=== PATIENT | male | born 1940 | race Caucasian/White ===

== ENCOUNTER → 2020-08-07 | Outpatient (CLI) | payer MEDICARE, BC ==
[~2020-08-07] MED LIST: REGADENOSON 0.4 MG/5 ML SYRINGE ONE
== END | disposition home or self-care (01) ==
LOC: CFH 08:30
PROVIDERS: ATTEND Internal Medicine Cardiovascular Disease
DX: I21.09 ST elevation (STEMI) myocardial infarction involving other coronary artery of anterior wall (principal); I42.9 Cardiomyopathy, unspecified; I50.9 Heart failure, unspecified; I21.19 ST elevation (STEMI) myocardial infarction involving other coronary artery of inferior wall; I25.5 Ischemic cardiomyopathy; R94.31 Abnormal electrocardiogram [ECG] [EKG]
CPT/HCPCS: 78452; 93017; A9502; J2785

== ENCOUNTER → 2020-08-10 | Outpatient (CLI) | payer MEDICARE, BC | END | disposition home or self-care (01) | LOC: CFH 12:13 | PROVIDERS: ATTEND Internal Medicine Cardiovascular Disease | DX: I08.3 Combined rheumatic disorders of mitral, aortic and tricuspid valves (principal); I42.9 Cardiomyopathy, unspecified; I50.9 Heart failure, unspecified | CPT/HCPCS: 93306 ==

== ENCOUNTER 2020-11-23 08:43 | Observation (INO) | payer MEDICARE, BC ==
[~2020-11-23] VITALS: Ht 175.3 cm; Wt 72.5 kg
[~2020-11-23 08:43] MED LIST changes: +ALLO100T30 PO; +ASCO100018 PO; +ASPI81TA45 PO; +CARV3.1212 PO; +CHOL10003 PO; +DEXA4TAB66 PO; +FINA5TAB4 PO; +FURO-93 PO; +IXAZ3CAP3 PO; +LENA5CAP PO; +LOPE2CAP PO; +POTA20PA25 PO; -REGADENOSON 0.4 MG/5 ML SYRINGE ONE; +TURM500C7 PO; +VITA1CAP PO
[2020-11-23 09:08] VITALS: BP 107/72
[2020-11-23] MEDS ORDERED: MIDAZOLAM 1 MG/ML, 2ML ONE (09:14)
[2020-11-23] MEDS ORDERED: CEFAZOLIN PMX 1GM/50ML 0 ML ONE (09:14)
[2020-11-23] MEDS ORDERED: LIDOCAINE 1%, 20ML ONE ×2 (09:14→11:04)
[2020-11-23] MEDS ORDERED: FENTANYL PF 100 MCG/2ML ONE ×3 (09:14→11:09)
[2020-11-23] MEDS ORDERED: CEFAZOLIN 1,000 MG ONE ×2 (09:15→10:18)
[2020-11-23] MEDS ORDERED: MIDO2.5T PO (09:15)
[2020-11-23] MEDS ORDERED: [UNRECOGNIZED DRUG - CODE] PO (09:28)
[2020-11-23] MEDS ORDERED: POTA20TA89 PO (09:28)
[2020-11-23] MEDS ORDERED: LENA5CAP PO (09:28)
[2020-11-23] MEDS ORDERED: CYAN-27 PO (09:31)
[2020-11-23] MEDS ORDERED: SODI650T PO (09:44)
[2020-11-23 09:59] LABS: BASOPHILS % (AUTO) 2 % (0-1); EOSINOPHILS % (AUTO) 1 % (1-7); LYMPHOCYTES % (AUTO) 21 % (22-44); MEAN CORPUSCULAR HEMOGLOBIN 31.1 pg (27.5-34.5); MEAN CORPUSCULAR HGB CONC 33.1 g/dL (33.2-36.2); MEAN PLATELET VOLUME 10.8 fL (7.4-10.4); MONOCYTES % (AUTO) 20 % (2-9); NEUTROPHILS % (AUTO) 57 % (42-75); PLATELET COUNT 52 x10^3/uL (130-400); RED BLOOD COUNT 3.27 x10^6/uL (4.38-5.82); RED CELL DISTRIBUTION WIDTH 18.2 % (9.4-14.8)
[2020-11-23 10:00] LABS: ANION GAP 7 mmol/L (5-15); CALCIUM 9.2 mg/dL (8.5-10.1); CHLORIDE 106 mmol/L (98-107); CREATININE 1.91 mg/dL (0.7-1.3)
[2020-11-23] MEDS ORDERED: MIDAZOLAM 1 MG/ML, 5ML ONE (10:18)
[2020-11-23] MEDS ORDERED: CEFAZOLIN PMX 1GM/50ML 50 ML ONE (10:18)
[2020-11-23] MEDS ORDERED: LIDOCAINE 2%, 20ML ONE (10:18)
[2020-11-23 10:20] LABS: ACANTHOCYTES 1+; ANISOCYTOSIS 1+; ECHINOCYTES 1+; MD MORPH REVIEW ONLY; OVALOCYTES 1+
[2020-11-23 10:21] LABS: <PLATELET ESTIMATE> DECREASED; LARGE PLATELETS 1+
[2020-11-23] MEDS ORDERED: ONDANSETRON 2MG/ML, 2ML IV PRN (11:30)
[2020-11-23] MEDS ORDERED: LOPERAMIDE 2 MG CAPSULE PO PRN (11:30)
[2020-11-23] MEDS ORDERED: FUROSEMIDE 20 MG TABLET PO PRN (11:30)
[2020-11-23] MEDS ORDERED: HOLD MEDICATION MC PRN (11:30)
[2020-11-23] MEDS ORDERED: DEXAMETHASONE 4 MG TABLET PO SCH (11:30)
[2020-11-23] MEDS ORDERED: MIDODRINE 2.5 MG TABLET PO PRN (11:30)
[2020-11-23] MEDS ORDERED: BISACODYL 5 MG EC TABLET PO PRN (11:30)
[2020-11-23 13:00] VITALS: BP 138/76
[2020-11-23] MEDS ORDERED: CYANOCOBALAMIN 1,000 MCG TABLET PO SCH (15:30)
[2020-11-23 16:00] VITALS: BP 89/56
[2020-11-23] MEDS: SODIUM CHLORIDE 0.9% 1,000 ML IV SCH ×2 (17:30→18:18)
[2020-11-23] MEDS: CEFAZOLIN PMX 1GM/50ML 50 ML IVPB SCH (18:45)
[2020-11-23 20:13] VITALS: BP 94/62
[2020-11-23] MEDS: SODIUM CHLORIDE FLUSH 10ML SYR IVF SCH (20:41)
[2020-11-23] MEDS: ACETAMINOPHEN 325 MG TABLET PO PRN (20:41)
[2020-11-23] MEDS ORDERED: ZOLPIDEM 5MG TABLET PO PRN (21:00)
[2020-11-24] MEDS: CEFAZOLIN PMX 1GM/50ML 50 ML IVPB SCH ×2 (01:54→08:47)
[2020-11-24 02:00] VITALS: BP 103/64
[2020-11-24] MEDS: SODIUM CHLORIDE 0.9% 1,000 ML IV SCH ×2 (02:58→09:30)
[2020-11-24] MEDS: ACETAMINOPHEN 325 MG TABLET PO PRN (03:53)
[2020-11-24 07:14] VITALS: BP 108/69
[2020-11-24] MEDS ORDERED: ACET325T26 PO (08:30)
[2020-11-24] MEDS: SODIUM CHLORIDE FLUSH 10ML SYR IVF SCH (08:43)
[2020-11-24] MEDS ORDERED: ASPIRIN 81 MG TABLET EC PO SCH (09:00)
[2020-11-24] MEDS ORDERED: ALLOPURINOL 300 MG TABLET PO SCH (09:00)
[2020-11-24] MEDS ORDERED: SODIUM BICARBONATE 650 MG TABLET PO SCH (09:00)
[2020-11-24] MEDS ORDERED: FINASTERIDE 5 MG TABLET PO SCH (09:00)
== END 2020-11-24 10:00 | disposition home or self-care (01) ==
LOC: CACL 08:43 → ORIP 11:29 → 5SO 15:02 → DCLOUNGE 11-24 09:50
PROVIDERS: ADMIT Internal Medicine Cardiovascular Disease; ATTEND Internal Medicine Cardiovascular Disease
DX: I25.5 Ischemic cardiomyopathy (principal); Z45.02 Encounter for adjustment and management of automatic implantable cardiac defibrillator; I13.0 Hypertensive heart and chronic kidney disease with heart failure and stage 1 through stage 4 chronic kidney disease, or unspecified chronic kidney disease; I50.9 Heart failure, unspecified; N18.9 Chronic kidney disease, unspecified; R53.83 Other fatigue; C90.00 Multiple myeloma not having achieved remission; G47.30 Sleep apnea, unspecified; I95.1 Orthostatic hypotension; Z79.899 Other long term (current) drug therapy; Z95.810 Presence of automatic (implantable) cardiac defibrillator
CPT/HCPCS: 33249; 36415; 71045; 71046; 80048; 85025; 93005; 96361; 96365; 96366; 99156; C1721; C1779; C1892; C1895; G0378; J0690; J2250; J3010; J3490; J7030

== ENCOUNTER 2020-12-20 13:23 | Inpatient (IN) | payer MEDICARE, BC ==
[~2020-12-20] VITALS: Ht 175.3 cm; Wt 67.6 kg
[~2020-12-20 13:23] MED LIST changes: +ACET325T26 PO; +CYAN-27 PO; +MIDO2.5T PO; +POTA20TA89 PO; +SODI650T PO; +[UNRECOGNIZED DRUG - CODE] PO
[2020-12-20] MEDS ORDERED: SODIUM CHLORIDE FLUSH 10ML SYR IVF ONE (14:00)
--- NOTE | 2020-12-20 14:06 | NUR ---
FIRST CONTACT WITH PT. PT C/O FATIGUE AND SOB. HX:CHF (NO HOME O2), PACEMAKER (X3 WEEKS). PT DENIES ANY OTHER SYMPTOMS. PT'S AOX4. RESPS EVEN AND UNLABORED. ALL MONITORS IN PLACE. SPO2 >90% WITH 2L OXY BY NC.
--- NOTE | 2020-12-20 14:14 | NUR ---
TASK RN: PIV STARTED, LABS DRAWN.
[2020-12-20 14:31] LABS: BASOPHILS % (AUTO) 1 % (0-1); EOSINOPHILS % (AUTO) 0 % (1-7); LYMPHOCYTES % (AUTO) 5 % (22-44); MEAN CORPUSCULAR HEMOGLOBIN 31.7 pg (27.5-34.5); MEAN CORPUSCULAR HGB CONC 32.6 g/dL (33.2-36.2); MEAN PLATELET VOLUME 11.7 fL (7.4-10.4); MONOCYTES % (AUTO) 18 % (2-9); NEUTROPHILS % (AUTO) 76 % (42-75); PLATELET COUNT 50 x10^3/uL (130-400); RED CELL DISTRIBUTION WIDTH 20.8 % (9.4-14.8)
[2020-12-20 14:39] LABS: ALBUMIN 3.4 g/dL (3.4-5.0); ANION GAP 7 mmol/L (5-15); CALCIUM 10.2 mg/dL (8.5-10.1); CHLORIDE 106 mmol/L (98-107)
[2020-12-20 14:45] LABS: ALKALINE PHOSPHATASE 641 U/L (45-117); BILIRUBIN,TOTAL 3.6 mg/dL (0.2-1.0); CREATININE 2.37 mg/dL (0.7-1.3); TOTAL PROTEIN 6.3 g/dL (6.4-8.2)
[2020-12-20 14:47] LABS: ALANINE AMINOTRANSFERASE 258 U/L (12-78)
--- NOTE | 2020-12-20 14:55 | NUR ---
TASK RN: PT REPOSITIONED IN BED, PROVIDED URINAL AND EDUCATED ON NEED FOR SAMPLE.
[2020-12-20 14:56] LABS: TROPONIN I 0.139 ng/mL (0.000-0.045)
[2020-12-20] MEDS ORDERED: ASPIRIN 81 MG TABLET CHEW ONE (15:00)
[2020-12-20] MEDS ORDERED: ASPIRIN 81 MG TABLET CHEW PO ONE (15:00)
[2020-12-20] MEDS ORDERED: SODIUM CHLORIDE 0.9% 1,000ML IVBOLUS ONE (15:00)
--- NOTE | 2020-12-20 15:07 | NUR ---
TASK RN: PT REPORTS TAKING 162 MG ASPIRIN TODAY. PER HOLD ASPIRIN. INQUIRED ABOUT ABX AT THIS TIME. PER PT IS ALSO TO REMAIN NPO.
[2020-12-20 15:08] LABS: MD NO
--- NOTE | 2020-12-20 15:11 | NUR ---
TASK RN: PT PROVIDED W/ MOUTH SWAB.
[2020-12-20] MEDS ORDERED: CEFTRIAXONE PMX 1GM/50ML 50 ML IV ONE (15:30)
--- NOTE | 2020-12-20 15:34 | NUR ---
PT RESTING IN [place]. PT'S AOX4. RESPS EVEN AND UNLABORED. NSR RATE 80-90'S ON CARDIAC [place] WITHOUT ECTOPY. ALL MONITORS IN PLACE. CALL LIGHT WITHIN REACH.
[2020-12-20] MEDS ORDERED: CEFTRIAXONE PMX 1GM/50ML 50 ML ONE (15:42)
--- NOTE | 2020-12-20 15:54 | NUR ---
ABX INFUSING AT THIS TIME AFTER BC X 2. PT TOLERATED WELL.
--- NOTE | 2020-12-20 16:33 | NUR ---
EDMD AT BEDSIDE TO EXPLAIN ALL RESULTS AT THIS TIME.
--- NOTE | 2020-12-20 17:09 | NUR ---
PT C/O PRESSURE SORE ON BACK D/T SORAYA. THIS RN DISCUSSED WITH THROUGHPUT. PER THROUGHPUT, PT WILL HAVE BED SOON.
[2020-12-20] MEDS ORDERED: hydrALAzine 20 MG/ML, 1ML IVPush PRN (17:30)
[2020-12-20] MEDS ORDERED: ENALAPRILAT 1.25 MG/ML, 2ML IVPush PRN (17:30)
[2020-12-20] MEDS ORDERED: ONDANSETRON 2MG/ML, 2ML IVPush PRN (17:30)
[2020-12-20] MEDS ORDERED: GUAIFENESIN/DM 200-20MG, 10ML UDC PO PRN (17:30)
[2020-12-20] MEDS ORDERED: ONDANSETRON ODT 4 MG PO PRN (17:30)
[2020-12-20] MEDS ORDERED: morphine SULFATE 10 MG/ML, 1ML IVPush PRN (17:30)
[2020-12-20] MEDS ORDERED: ACETAMINOPHEN 325 MG TABLET PO PRN (17:30)
--- NOTE | 2020-12-20 17:33 | NUR ---
REPORT GIVEN TO WAN SNYDER. ALL QUESTIONS ANSWERED.
[2020-12-20 17:43] LABS: TROPONIN I 0.145 ng/mL (0.000-0.045)
[2020-12-20 18:05] VITALS: BP 118/89
[2020-12-20] MEDS: FUROSEMIDE 40 MG/4 ML IV SCH (18:20)
[2020-12-20] MEDS: HEPARIN 5,000 UNITS/ML, 1ML SQ SCH (18:24)
[2020-12-20 19:37] LABS: MICROSCOPIC NOT IND
[2020-12-20 19:45] VITALS: BP 122/86
[2020-12-20] MEDS ORDERED: MELATONIN 5 MG TABLET PO PRN (21:00)
[2020-12-21 00:20] LABS: TROPONIN I 0.135 ng/mL (0.000-0.045)
[2020-12-21 01:32] VITALS: BP 119/88
[2020-12-21] MEDS: HEPARIN 5,000 UNITS/ML, 1ML SQ SCH ×3 (03:20→22:03)
[2020-12-21 06:51] VITALS: BP 139/93
[2020-12-21 07:09] LABS: MEAN CORPUSCULAR HEMOGLOBIN 31.8 pg (27.5-34.5); MEAN PLATELET VOLUME 12.2 fL (7.4-10.4); RED BLOOD COUNT 3.17 x10^6/uL (4.38-5.82); RED CELL DISTRIBUTION WIDTH 20.9 % (9.4-14.8)
[2020-12-21 07:12] LABS: ALBUMIN 3.2 g/dL (3.4-5.0); ANION GAP 9 mmol/L (5-15); CALCIUM 9.9 mg/dL (8.5-10.1); CHLORIDE 105 mmol/L (98-107)
[2020-12-21 07:17] LABS: ALANINE AMINOTRANSFERASE 241 U/L (12-78); ALKALINE PHOSPHATASE 611 U/L (45-117); BILIRUBIN,TOTAL 2.9 mg/dL (0.2-1.0); CREATININE 2.19 mg/dL (0.7-1.3)
[2020-12-21 07:35] LABS: MD YES
[2020-12-21 07:37] LABS: PLATELET COUNT 49 x10^3/uL (130-400)
[2020-12-21 07:38] LABS: BAND#(MANUAL) 0.24 x10^3/uL; BANDS%(MANUAL) 4 % (0-7); LYMPH#(MANUAL) 0.18 x10^3/uL (1-3.4); LYMPHS% (MANUAL) 3 % (22-44); METAMYELOCYTES# (MANUAL) 0.06 x10^3/uL (0-0); METAMYELOCYTES% (MANUAL) 1 % (0-1); MONOS#(MANUAL) 0.53 x10^3/uL (0.3-2.7); MONOS% (MANUAL) 9 % (2-9); SEGS% (MANUAL) 83 % (42-75)
[2020-12-21 07:39] LABS: <PLATELET ESTIMATE> DECREASED; ACANTHOCYTES 1+; ANISOCYTOSIS 1+; LARGE PLATELETS 1+; OVALOCYTES 1+
[2020-12-21 07:40] LABS: ECHINOCYTES 2+; HYPOCHROMIA 1+; POLYCHROMASIA 1+; TARGET CELLS 1+
[2020-12-21] MEDS: FUROSEMIDE 40 MG/4 ML IV SCH (09:10)
[2020-12-21 09:44] VITALS: BP 109/64
[2020-12-21] MEDS: FINASTERIDE 5 MG TABLET PO SCH (10:09)
[2020-12-21 13:22] VITALS: BP 116/84
[2020-12-21 20:03] VITALS: BP 113/79
[2020-12-22 00:42] VITALS: BP 103/72
[2020-12-22] MEDS: HEPARIN 5,000 UNITS/ML, 1ML SQ SCH ×3 (04:11→20:10)
[2020-12-22 07:44] VITALS: BP 114/76
[2020-12-22 07:55] LABS: ANION GAP 8 mmol/L (5-15); CALCIUM 9.1 mg/dL (8.5-10.1); CHLORIDE 106 mmol/L (98-107)
[2020-12-22 08:04] LABS: MEAN CORPUSCULAR HEMOGLOBIN 31.5 pg (27.5-34.5); MEAN CORPUSCULAR HGB CONC 32.6 g/dL (33.2-36.2); MEAN PLATELET VOLUME 11.6 fL (7.4-10.4); RED BLOOD COUNT 3.41 x10^6/uL (4.38-5.82)
[2020-12-22 08:30] LABS: PLATELET COUNT 52 x10^3/uL (130-400)
[2020-12-22 08:31] LABS: MD YES
[2020-12-22 08:32] LABS: ANISOCYTOSIS 1+; BAND#(MANUAL) 0.06 x10^3/uL; BANDS%(MANUAL) 1 % (0-7); EOS#(MANUAL) 0.06 x10^3/uL (0.0-0.4); EOS% (MANUAL) 1 % (1-7); HYPOCHROMIA 1+; LYMPH#(MANUAL) 0.32 x10^3/uL (1-3.4); LYMPHS% (MANUAL) 5 % (22-44); MONOS% (MANUAL) 8 % (2-9); POLYCHROMASIA 1+; SEG#(MANUAL) 5.36 x10^3/uL (1.8-6.8); SEGS% (MANUAL) 85 % (42-75)
[2020-12-22 08:33] LABS: <PLATELET ESTIMATE> DECREASED; ACANTHOCYTES 1+; ECHINOCYTES 1+; LARGE PLATELETS 1+; OVALOCYTES 1+; TARGET CELLS 1+
[2020-12-22] MEDS: POLYETHYLENE GLYCOL 17 GM PACKET PO SCH (09:30)
[2020-12-22] MEDS: FUROSEMIDE 40 MG/4 ML IV SCH (09:46)
[2020-12-22] MEDS: FINASTERIDE 5 MG TABLET PO SCH (09:46)
[2020-12-22] MEDS: POTASSIUM CHLORIDE 20 MEQ TAB.ER.PRT PO SCH ×2 (10:33→17:40)
[2020-12-22 13:50] VITALS: BP 108/76
[2020-12-22 19:02] VITALS: BP 111/84
[2020-12-23 00:58] VITALS: BP 114/79
[2020-12-23] MEDS: HEPARIN 5,000 UNITS/ML, 1ML SQ SCH ×3 (03:51→19:08)
[2020-12-23 06:02] LABS: ANION GAP 7 mmol/L (5-15); CALCIUM 8.8 mg/dL (8.5-10.1); CHLORIDE 106 mmol/L (98-107)
[2020-12-23 06:03] LABS: CREATININE 1.66 mg/dL (0.7-1.3)
[2020-12-23 07:48] VITALS: BP 115/64
[2020-12-23] MEDS: POTASSIUM CHLORIDE 20 MEQ TAB.ER.PRT PO SCH ×2 (08:52→17:52)
[2020-12-23] MEDS: FUROSEMIDE 40 MG/4 ML IV SCH (08:52)
[2020-12-23] MEDS: POLYETHYLENE GLYCOL 17 GM PACKET PO SCH (08:59)
[2020-12-23] MEDS: FINASTERIDE 5 MG TABLET PO SCH (09:01)
[2020-12-23 14:55] VITALS: BP 106/73
[2020-12-23 19:27] VITALS: BP 107/72
[2020-12-24 01:29] VITALS: BP 102/70
[2020-12-24] MEDS: HEPARIN 5,000 UNITS/ML, 1ML SQ SCH ×2 (03:40→11:43)
[2020-12-24 05:30] LABS: ANION GAP 6 mmol/L (5-15); CHLORIDE 106 mmol/L (98-107)
[2020-12-24 05:32] LABS: CREATININE 1.44 mg/dL (0.7-1.3)
[2020-12-24 08:56] VITALS: BP 102/69
[2020-12-24] MEDS: POTASSIUM CHLORIDE 20 MEQ TAB.ER.PRT PO SCH (09:00)
[2020-12-24] MEDS: POLYETHYLENE GLYCOL 17 GM PACKET PO SCH (09:00)
[2020-12-24] MEDS ORDERED: FUROSEMIDE 40 MG TABLET PO SCH (09:00)
[2020-12-24] MEDS: FINASTERIDE 5 MG TABLET PO SCH (09:01)
[2020-12-24 13:25] VITALS: BP 109/66
== END 2020-12-24 15:12 | DRG 280 ==
LOC: ED 15:44 → EDIP 16:41 → 5SO 17:40
PROVIDERS: ADMIT Hospitalist; ATTEND Family Medicine
DX: I13.0 Hypertensive heart and chronic kidney disease with heart failure and stage 1 through stage 4 chronic kidney disease, or unspecified chronic kidney disease (principal); G93.41 Metabolic encephalopathy; I21.A1 Myocardial infarction type 2; N17.0 Acute kidney failure with tubular necrosis; I50.23 Acute on chronic systolic (congestive) heart failure; E46 Unspecified protein-calorie malnutrition; C90.00 Multiple myeloma not having achieved remission; I31.3 Pericardial effusion (noninflammatory); J44.1 Chronic obstructive pulmonary disease with (acute) exacerbation; Q21.1 Atrial septal defect; D69.6 Thrombocytopenia, unspecified; D64.9 Anemia, unspecified; I08.3 Combined rheumatic disorders of mitral, aortic and tricuspid valves; I25.10 Atherosclerotic heart disease of native coronary artery without angina pectoris; I25.5 Ischemic cardiomyopathy; K80.20 Calculus of gallbladder without cholecystitis without obstruction; M1A.9XX0 Chronic gout, unspecified, without tophus (tophi); N18.30 Chronic kidney disease, stage 3 unspecified; N40.0 Benign prostatic hyperplasia without lower urinary tract symptoms; Z95.810 Presence of automatic (implantable) cardiac defibrillator; G47.9 Sleep disorder, unspecified; R79.89 Other specified abnormal findings of blood chemistry; Z79.899 Other long term (current) drug therapy; Z79.891 Long term (current) use of opiate analgesic; Z79.01 Long term (current) use of anticoagulants; Z95.1 Presence of aortocoronary bypass graft; Z79.82 Long term (current) use of aspirin; Z82.49 Family history of ischemic heart disease and other diseases of the circulatory system; E11.22 Type 2 diabetes mellitus with diabetic chronic kidney disease
CPT/HCPCS: 36415; 71045; 76700; 80048; 80053; 81003; 82550; 83605; 83735; 83880; 84145; 84484; 85025; 87040; 93005; 96361; 96365; 96366; G0378; J0696; J1644; J1940; J7030

== ENCOUNTER 2021-02-12 11:29 | Observation (INO) | payer MEDICARE, BC ==
[~2021-02-12] VITALS: Ht 175.3 cm; Wt 64.0 kg
[2021-02-12] MEDS ORDERED: SODIUM CHLORIDE FLUSH 10ML SYR IVF ONE (12:00)
[2021-02-12 12:12] LABS: BASOPHILS % (AUTO) 1 % (0-1); EOSINOPHILS % (AUTO) 2 % (1-7); LYMPHOCYTES % (AUTO) 13 % (22-44); MEAN CORPUSCULAR HEMOGLOBIN 31.9 pg (27.5-34.5); MEAN CORPUSCULAR HGB CONC 33.2 g/dL (33.2-36.2); MONOCYTES % (AUTO) 19 % (2-9); NEUTROPHILS % (AUTO) 66 % (42-75); RED BLOOD COUNT 3.28 x10^6/uL (4.38-5.82); RED CELL DISTRIBUTION WIDTH 21.3 % (9.4-14.8)
[2021-02-12 12:28] LABS: ALBUMIN 3.5 g/dL (3.4-5.0); ANION GAP 3 mmol/L (5-15); CHLORIDE 109 mmol/L (98-107)
[2021-02-12 12:33] LABS: ALANINE AMINOTRANSFERASE 21 U/L (12-78); ALKALINE PHOSPHATASE 108 U/L (45-117); BILIRUBIN,TOTAL 0.8 mg/dL (0.2-1.0); CREATININE 1.87 mg/dL (0.7-1.3); TOTAL PROTEIN 6.7 g/dL (6.4-8.2); TROPONIN I 0.053 ng/mL (0.000-0.045)
[2021-02-12 12:35] LABS: MD MORPH REVIEW ONLY; PLATELET COUNT 52 x10^3/uL (130-400)
[2021-02-12 12:36] LABS: ANISOCYTOSIS 1+
[2021-02-12 12:37] LABS: ACANTHOCYTES 1+; ECHINOCYTES 1+; OVALOCYTES 1+; TARGET CELLS 1+
[2021-02-12 12:38] LABS: <PLATELET ESTIMATE> DECREASED; LARGE PLATELETS 1+; SCHISTOCYTES 1+
[2021-02-12] MEDS ORDERED: ASPIRIN 81 MG TABLET CHEW PO ONE (13:30)
[2021-02-12] MEDS ORDERED: ASPIRIN 81 MG TABLET CHEW ONE (13:40)
[2021-02-12] MEDS ORDERED: FUROSEMIDE 40 MG/4 ML ONE (13:54)
[2021-02-12] MEDS ORDERED: FUROSEMIDE 40 MG/4 ML IV ONE (14:00)
[2021-02-12] MEDS ORDERED: ACETAMINOPHEN 325 MG TABLET PO PRN (15:00)
[2021-02-12] MEDS ORDERED: POLYETHYLENE GLYCOL 17 GM PACKET PO PRN (15:00)
[2021-02-12] MEDS ORDERED: HYDROcodone/APAP 5/325 TABLET PO PRN (15:00)
[2021-02-12] MEDS ORDERED: morphine SULFATE 10 MG/ML, 1ML IVPush PRN (15:00)
[2021-02-12] MEDS ORDERED: MELATONIN 5 MG TABLET PO PRN (15:00)
[2021-02-12] MEDS ORDERED: ONDANSETRON 2MG/ML, 2ML IVPush PRN (15:00)
[2021-02-12] MEDS ORDERED: hydrALAzine 20 MG/ML, 1ML IVPush PRN (15:00)
[2021-02-12 15:03] VITALS: BP 106/71
[2021-02-12 15:20] VITALS: BP 106/71
[2021-02-12] MEDS: LENALIDOMIDE 5 MG PO SCH (15:30)
[2021-02-12 15:38] LABS: TROPONIN I 0.046 ng/mL (0.000-0.045)
[2021-02-12] MEDS: HEPARIN 5,000 UNITS/ML, 1ML SQ SCH ×2 (16:22→22:47)
[2021-02-12 19:43] VITALS: BP 93/62
[2021-02-12 19:55] VITALS: BP 100/72
[2021-02-12 20:07] VITALS: BP 106/68
[2021-02-12 20:31] LABS: TROPONIN I 0.052 ng/mL (0.000-0.045)
[2021-02-13 00:01] VITALS: BP 93/60
[2021-02-13 04:57] LABS: MEAN CORPUSCULAR HEMOGLOBIN 32.1 pg (27.5-34.5); MEAN CORPUSCULAR HGB CONC 33.3 g/dL (33.2-36.2); MEAN PLATELET VOLUME 11.4 fL (7.4-10.4); RED BLOOD COUNT 2.92 x10^6/uL (4.38-5.82); RED CELL DISTRIBUTION WIDTH 21.1 % (9.4-14.8)
[2021-02-13 05:04] LABS: ALBUMIN 2.9 g/dL (3.4-5.0); ANION GAP 7 mmol/L (5-15); CALCIUM 8.9 mg/dL (8.5-10.1); CHLORIDE 108 mmol/L (98-107)
[2021-02-13 05:08] LABS: ALANINE AMINOTRANSFERASE 17 U/L (12-78); ALKALINE PHOSPHATASE 92 U/L (45-117); BILIRUBIN,TOTAL 0.6 mg/dL (0.2-1.0); CREATININE 1.84 mg/dL (0.7-1.3); TOTAL PROTEIN 5.7 g/dL (6.4-8.2)
[2021-02-13 05:46] LABS: MD YES
[2021-02-13 05:48] LABS: PLATELET COUNT 45 x10^3/uL (130-400)
[2021-02-13 05:52] LABS: BAND#(MANUAL) 0.04 x10^3/uL; BANDS%(MANUAL) 2 % (0-7); EOS#(MANUAL) 0.08 x10^3/uL (0.0-0.4); EOS% (MANUAL) 4 % (1-7); LYMPH#(MANUAL) 0.36 x10^3/uL (1-3.4); LYMPHS% (MANUAL) 17 % (22-44); METAMYELOCYTES# (MANUAL) 0.02 x10^3/uL (0-0); METAMYELOCYTES% (MANUAL) 1 % (0-1); MONOS#(MANUAL) 0.32 x10^3/uL (0.3-2.7); MONOS% (MANUAL) 15 % (2-9); SEG#(MANUAL) 1.28 x10^3/uL (1.8-6.8); SEGS% (MANUAL) 61 % (42-75)
[2021-02-13 05:53] LABS: <PLATELET ESTIMATE> DECREASED; ACANTHOCYTES 1+; ANISOCYTOSIS 1+; ECHINOCYTES 1+; LARGE PLATELETS 1+; OVALOCYTES 1+; SCHISTOCYTES 1+
[2021-02-13 05:54] LABS: TARGET CELLS 1+
[2021-02-13 07:51] VITALS: BP 99/64
[2021-02-13] MEDS ORDERED: POTASSIUM CHLORIDE 20 MEQ TAB.ER.PRT PO SCH ×2 (08:00)
[2021-02-13] MEDS: HEPARIN 5,000 UNITS/ML, 1ML SQ SCH (08:28)
[2021-02-13] MEDS ORDERED: METOLAZONE 5 MG TABLET PO SCH (08:30)
[2021-02-13] MEDS ORDERED: ASPIRIN 81 MG TABLET EC PO SCH (09:00)
[2021-02-13] MEDS ORDERED: SODIUM BICARBONATE 650 MG TABLET PO SCH (09:00)
[2021-02-13] MEDS ORDERED: FUROSEMIDE 40 MG/4 ML IV SCH (09:00)
[2021-02-13] MEDS ORDERED: CHOLECALCIFEROL 1,000 UNIT TABLET PO SCH (09:00)
[2021-02-13] MEDS: LENALIDOMIDE 5 MG PO SCH (10:02)
[2021-02-13] MEDS ORDERED: POTA20TA6 PO (11:28)
[2021-02-13] MEDS ORDERED: METO5TAB5 PO (11:28)
== END 2021-02-13 15:36 | disposition home or self-care (01) ==
LOC: ED 13:34 → INTOOBSV 14:04 → EDIP 14:04 → 5SO 14:59 → DCLOUNGE 02-13 15:18
PROVIDERS: ADMIT Internal Medicine; ATTEND Hospitalist
DX: I50.22 Chronic systolic (congestive) heart failure (principal); N17.9 Acute kidney failure, unspecified; N18.30 Chronic kidney disease, stage 3 unspecified; D63.1 Anemia in chronic kidney disease; I25.5 Ischemic cardiomyopathy; I21.A1 Myocardial infarction type 2; D61.818 Other pancytopenia; D63.0 Anemia in neoplastic disease; C90.00 Multiple myeloma not having achieved remission; N40.0 Benign prostatic hyperplasia without lower urinary tract symptoms; E78.5 Hyperlipidemia, unspecified; M10.9 Gout, unspecified; Z79.899 Other long term (current) drug therapy; Z79.82 Long term (current) use of aspirin; Z95.810 Presence of automatic (implantable) cardiac defibrillator
CPT/HCPCS: 36415; 71045; 80053; 83735; 83880; 84100; 84145; 84484; 85025; 85027; 93005; 93306; 96372; 96374; 96376; 99285; G0378; J1644; J1940

== ENCOUNTER 2021-03-06 12:39 | Inpatient (IN) | payer MEDICARE, BC ==
[~2021-03-06] VITALS: Ht 175.3 cm; Wt 65.0 kg
[~2021-03-06 12:39] MED LIST changes: +METO5TAB5 PO; +POTA20TA6 PO
[2021-03-06] MEDS ORDERED: SODIUM CHLORIDE FLUSH 10ML SYR IVF ONE ×2 (13:30→14:00)
[2021-03-06 13:48] LABS: BASOPHILS % (AUTO) 0 % (0-1); EOSINOPHILS % (AUTO) 0 % (1-7); LYMPHOCYTES % (AUTO) 15 % (22-44); MEAN CORPUSCULAR HEMOGLOBIN 32.1 pg (27.5-34.5); MEAN CORPUSCULAR HGB CONC 33.4 g/dL (33.2-36.2); MEAN PLATELET VOLUME 9.5 fL (7.4-10.4); MONOCYTES % (AUTO) 16 % (2-9); NEUTROPHILS % (AUTO) 69 % (42-75); PLATELET COUNT 119 x10^3/uL (130-400); RED BLOOD COUNT 3.13 x10^6/uL (4.38-5.82); RED CELL DISTRIBUTION WIDTH 19.9 % (9.4-14.8)
[2021-03-06 13:49] LABS: ANION GAP 11 mmol/L (5-15); CALCIUM 9.9 mg/dL (8.5-10.1); CHLORIDE 106 mmol/L (98-107); CREATININE 2.46 mg/dL (0.7-1.3)
[2021-03-06 13:50] LABS: ALANINE AMINOTRANSFERASE 80 U/L (12-78); ALBUMIN 3.3 g/dL (3.4-5.0)
--- NOTE | 2021-03-06 13:51 | NUR ---
PT STATES HAS HAD WEAKNESS FOR THE LAST 2 MONTHS BUT THE LAST FEW DAYS PT HAS HAD AN INCREASE IN WEAKNESS. STATES THE PT HAS BEEN TIRED LATELY AND HAS BEEN LYING AROUND A LOT MORE NOT USING HIS LEGS, "AND THAT IS WHY HE IS WEAK, BECAUSE HE IS NOT USING THEM. STATES HIS APPETITE IS DIMINISHED THAT THE PT ONLY TAKES A FEW BITES AND IS DONE. HX OF CHF AFTER TAKING CA DRUGS IN 2016.
--- NOTE | 2021-03-06 13:55 | NUR ---
PROVIDER AT BEDSIDE FOR EVAL
[2021-03-06] MEDS ORDERED: SODIUM CHLORIDE 0.9% 1,000ML IVBOLUS ONE (14:00)
[2021-03-06 14:06] LABS: ALKALINE PHOSPHATASE 138 U/L (45-117); BILIRUBIN,TOTAL 0.9 mg/dL (0.2-1.0); TROPONIN I 0.048 ng/mL (0.000-0.045)
--- NOTE | 2021-03-06 14:41 | NUR ---
BREAK RN: PT ANXIOUS, AND STATES. "WHAT IS TAKING SO LONG". EXPLAINED THAT AWAITING TEST RESULTS, INCREASE EMOTIONAL SUPPORT GIVEN.
--- NOTE | 2021-03-06 15:07 | NUR ---
IV BOLUS STARTED NOTED ON NOV. VS UPDATED. WILL CONTINUE TO MONITOR
--- NOTE | 2021-03-06 15:50 | NUR ---
REPORT GIVEN TO SIMEON RN TO ASSUME CARE.
[2021-03-06 16:30] VITALS: BP 117/84
[2021-03-06] MEDS: HEPARIN 5,000 UNITS/ML, 1ML SQ SCH (17:50)
[2021-03-06] MEDS ORDERED: DOCUSATE 100 MG CAPSULE PO PRN (18:00)
[2021-03-06] MEDS ORDERED: ONDANSETRON 2MG/ML, 2ML IVPush PRN (18:00)
[2021-03-06] MEDS ORDERED: POLYETHYLENE GLYCOL 17 GM PACKET PO PRN (18:00)
[2021-03-06] MEDS ORDERED: ACETAMINOPHEN 325 MG TABLET PO PRN (18:00)
[2021-03-06] MEDS ORDERED: BISACODYL 10 MG SUPP PR PRN (18:00)
[2021-03-06] MEDS: SODIUM CHLORIDE 0.9% 1,000 ML IV SCH (18:20)
[2021-03-06 18:31] LABS: INTERNATIONAL NORMALIZED RATIO 1.27 (0.93-1.1); PROTHROMBIN TIME 13.5 Seconds (9.6-11.5)
[2021-03-06 18:59] LABS: TROPONIN I 0.047 ng/mL (0.000-0.045)
[2021-03-06 19:37] VITALS: BP_SYST 85; BP_SYST 93; BP_DIAS 63; BP_DIAS 66
[2021-03-06 19:38] VITALS: BP 90/61
[2021-03-06 19:40] VITALS: BP 103/73
[2021-03-06 23:53] LABS: TROPONIN I 0.045 ng/mL (0.000-0.045)
[2021-03-07 02:07] VITALS: BP 92/67
[2021-03-07] MEDS: HEPARIN 5,000 UNITS/ML, 1ML SQ SCH ×3 (02:13→17:44)
[2021-03-07 04:39] LABS: BASOPHILS % (AUTO) 1 % (0-1); EOSINOPHILS % (AUTO) 0 % (1-7); LYMPHOCYTES % (AUTO) 15 % (22-44); MEAN CORPUSCULAR HEMOGLOBIN 32.2 pg (27.5-34.5); MEAN CORPUSCULAR HGB CONC 33.3 g/dL (33.2-36.2); MEAN PLATELET VOLUME 9.4 fL (7.4-10.4); MONOCYTES % (AUTO) 16 % (2-9); NEUTROPHILS % (AUTO) 68 % (42-75); PLATELET COUNT 110 x10^3/uL (130-400); RED BLOOD COUNT 2.96 x10^6/uL (4.38-5.82); RED CELL DISTRIBUTION WIDTH 20.6 % (9.4-14.8)
[2021-03-07 04:50] LABS: ALBUMIN 3.2 g/dL (3.4-5.0); ANION GAP 12 mmol/L (5-15); CALCIUM 10.4 mg/dL (8.5-10.1); CHLORIDE 108 mmol/L (98-107)
[2021-03-07 05:01] LABS: ALANINE AMINOTRANSFERASE 156 U/L (12-78); ALKALINE PHOSPHATASE 167 U/L (45-117); BILIRUBIN,TOTAL 0.9 mg/dL (0.2-1.0); CREATININE 2.59 mg/dL (0.7-1.3); TOTAL PROTEIN 6.6 g/dL (6.4-8.2)
[2021-03-07 07:40] VITALS: BP 101/68
[2021-03-07] MEDS: SODIUM CHLORIDE 0.9% 1,000 ML IV SCH (08:06)
[2021-03-07] MEDS: ASPIRIN 81 MG TABLET EC PO SCH (08:06)
[2021-03-07] MEDS: MIDODRINE 2.5 MG TABLET PO SCH ×3 (08:06→21:00)
[2021-03-07] MEDS ORDERED: FUROSEMIDE 20 MG/2 ML IV ONE (10:30)
[2021-03-07] MEDS ORDERED: METO5TAB5 PO (10:30)
[2021-03-07 12:53] VITALS: BP 106/74
[2021-03-07 21:18] VITALS: BP 96/69
[2021-03-08] MEDS: HEPARIN 5,000 UNITS/ML, 1ML SQ SCH ×3 (02:27→17:49)
[2021-03-08 02:28] VITALS: BP 90/67
[2021-03-08 04:56] LABS: CALCIUM 9.8 mg/dL (8.5-10.1); CHLORIDE 106 mmol/L (98-107)
[2021-03-08 05:02] LABS: ALANINE AMINOTRANSFERASE 315 U/L (12-78); ALBUMIN 3.1 g/dL (3.4-5.0); ALKALINE PHOSPHATASE 244 U/L (45-117); ANION GAP 11 mmol/L (5-15); BILIRUBIN,TOTAL 1.1 mg/dL (0.2-1.0); CREATININE 2.54 mg/dL (0.7-1.3); TOTAL PROTEIN 6.6 g/dL (6.4-8.2)
[2021-03-08 07:10] VITALS: BP 113/80
[2021-03-08] MEDS ORDERED: POTASSIUM CHLORIDE 20 MEQ TAB.ER.PRT PO SCH (08:00)
[2021-03-08] MEDS: METOLAZONE 5 MG TABLET PO SCH (08:42)
[2021-03-08] MEDS: SODIUM BICARBONATE 650 MG TABLET PO SCH (08:43)
[2021-03-08] MEDS: MIDODRINE 2.5 MG TABLET PO SCH ×3 (08:43→20:39)
[2021-03-08] MEDS: ASPIRIN 81 MG TABLET EC PO SCH (08:43)
[2021-03-08] MEDS: FUROSEMIDE 20 MG/2 ML IV SCH ×2 (08:47→17:49)
[2021-03-08 13:10] VITALS: BP 102/69
[2021-03-08 19:38] VITALS: BP 117/79
[2021-03-09 01:46] VITALS: BP 99/74
[2021-03-09] MEDS: HEPARIN 5,000 UNITS/ML, 1ML SQ SCH ×2 (01:46→09:43)
[2021-03-09 06:04] LABS: ALANINE AMINOTRANSFERASE 527 U/L (12-78); ALBUMIN 3.1 g/dL (3.4-5.0); ANION GAP 13 mmol/L (5-15); CHLORIDE 105 mmol/L (98-107)
[2021-03-09 06:07] LABS: ALKALINE PHOSPHATASE 366 U/L (45-117); BILIRUBIN,TOTAL 1.4 mg/dL (0.2-1.0); CREATININE 2.63 mg/dL (0.7-1.3); TOTAL PROTEIN 6.5 g/dL (6.4-8.2)
[2021-03-09] MEDS: FUROSEMIDE 20 MG/2 ML IV SCH (07:27)
[2021-03-09 07:38] VITALS: BP 101/67
[2021-03-09] MEDS: ASPIRIN 81 MG TABLET EC PO SCH (09:42)
[2021-03-09] MEDS: SODIUM BICARBONATE 650 MG TABLET PO SCH (09:43)
[2021-03-09] MEDS: MIDODRINE 2.5 MG TABLET PO SCH (09:43)
[2021-03-09] MEDS: METOLAZONE 5 MG TABLET PO SCH ×2 (09:43→09:45)
[2021-03-09] MEDS ORDERED: MIDO2.5T PO (12:27)
[2021-03-09 13:05] VITALS: BP 98/68
== END 2021-03-09 15:00 | disposition home health service (06) | DRG 280 ==
LOC: ED 15:05 → EDIP 15:13 → ED 15:22 → 5SO 16:12 → DCLOUNGE 03-09 14:52
PROVIDERS: ADMIT Internal Medicine; ATTEND Internal Medicine
DX: I13.0 Hypertensive heart and chronic kidney disease with heart failure and stage 1 through stage 4 chronic kidney disease, or unspecified chronic kidney disease (principal); J18.9 Pneumonia, unspecified organism; I21.A1 Myocardial infarction type 2; I50.23 Acute on chronic systolic (congestive) heart failure; N17.9 Acute kidney failure, unspecified; C90.00 Multiple myeloma not having achieved remission; D61.818 Other pancytopenia; K80.10 Calculus of gallbladder with chronic cholecystitis without obstruction; N18.30 Chronic kidney disease, stage 3 unspecified; E78.5 Hyperlipidemia, unspecified; I25.5 Ischemic cardiomyopathy; I27.20 Pulmonary hypertension, unspecified; I34.0 Nonrheumatic mitral (valve) insufficiency; K76.1 Chronic passive congestion of liver; N40.0 Benign prostatic hyperplasia without lower urinary tract symptoms; M10.9 Gout, unspecified; Z95.810 Presence of automatic (implantable) cardiac defibrillator; Z79.899 Other long term (current) drug therapy; I95.9 Hypotension, unspecified
CPT/HCPCS: 36415; 71045; 76700; 78582; 80053; 82607; 83735; 83880; 84100; 84443; 84484; 85025; 85379; 85610; 93005; G0378; J1644; A9540; A9558; C9898; J1940; J7030